=== PATIENT | male | born 1985 | race American Indian/Alaskan Native ===

== ENCOUNTER 2022-06-14 16:36 | Emergency (ER) | payer SELFPAY ==
[2022-06-14 16:43] VITALS: BP 137/90
--- NOTE | 2022-06-14 17:22 | XRay Report ---
LEFT SHOULDER 3 VIEW(S) INDICATION / CLINICAL INFORMATION: INJURY. COMPARISON: None available. FINDINGS: BONES / JOINT(S): No acute fracture or subluxation. No significant arthritis. SOFT TISSUES: No significant abnormality. ADDITIONAL FINDINGS: None. IMPRESSION: 1. No acute findings. Signer Name: Hossein Irvin MD Signed: 06/14/2022 5:17 PM Workstation Name: [employer]
[2022-06-14] MEDS ORDERED: KETOROLAC 30 MG/1 ML INJ IM ONE (18:32)
--- NOTE | 2022-06-14 18:37 | Emergency Department Report ---
Upper Extremity - [facility] Chief Complaint: Extremity Injury, Upper Stated Complaint: SHOULDER PAIN / HAVENT SLEPT IN 3 DAYS Upper Extremity: Left Shoulder Occurred When: 3 Days Severity: severe Symptoms: Yes Pain with Movement, Yes Limited Range of Movement, Yes Numbness, No Deformity, No Swelling Other History: Patient reports to ER for left shoulder pain time 3 days. Has only been taking Tylenol which has not helped. Not able to lift arm or extend. Does work a laborous job. NKDA. Denies any known injury. ED Review of Systems ROS: Stated complaint: SHOULDER PAIN / HAVENT SLEPT IN 3 DAYS Other details as noted in HPI ED Past Medical Hx - Past Medical History Previous Medical History?: Yes - Surgical History Past Surgical History?: No - Social History Smoking Status: Never Smoker Substance Use Type: None - Medications Home Medications: Home Medications Medication Instructions Recorded Confirmed Last Taken Type Ibuprofen [Motrin 800 MG tab] 800 mg PO Q8HR PRN #30 tablet 06/14/22 Unknown Rx Upper Extremity Exam - Exam General: Vital signs noted. No distress. Alert and acting appropriately. Head and Torso: No HEENT Abnormality, No Neck Tenderness, No Chest/Lungs Abnormality, No Abdominal Tenderness, No Back Tenderness Shoulder Exam: Yes Shoulder Tenderness, Yes AC Joint Tenderness, No Clavicle Tenderness, No Normal Range of Motion in Shoulder, No Shoulder Deformity Arm Exam: No Arm/Humerus Tenderness, No Arm Deformity Elbow: No Elbow Tenderness, No Normal Range of Motion in Elbow, No Elbow Deformity Forearm: No Forearm Tenderness, No Forearm Deformity, No Pain with Pronation, No Pain with Supination Wrist: Yes Normal ROM in Wrist, No Wrist Tenderness, No Wrist Deformity, No Snuffbox Tenderness, No Pain with Axial Thumb Compression Hand: Yes Normal ROM in Digit(s), No Hand Tenderness, No Hand Deformity, No Digit Tenderness, No Digit(s) Deformity, No Tendon Dysfunction ED Course Vital Signs 06/14/22 06/14/22 16:37 16:39 Temperature 99.3 F Pulse Rate 96 H Respiratory 18 Rate Blood Pressure 137/90 O2 Sat by Pulse 100 Oximetry ED Medical Decision Making - Medical Decision Making Patient reports to ER for left shoulder pain time 3 days. Has only been taking Tylenol which has not helped. Not able to lift arm or extend. Does work a laborous job. NKDA. Denies any known injury. Xray of shoulder shows no acute abnormality. Patient will be given a Toradol 30 mg IM. Discharge on Ibuprofen 800mg and referral to Orthopedis. Critical care attestation.: If time is entered above; I have spent that time in minutes in the direct care of this critically ill patient, excluding procedure time. ED Disposition Clinical Impression: Left anterior shoulder pain Disposition: HOME / SELF CARE / HOMELESS Is pt being admited?: No Does the pt Need Aspirin: No Condition: Stable Instructions: Shoulder Pain, [id number] Additional Instructions: Take pain medication follow up with an orthopedics. Prescriptions: Ibuprofen [Motrin 800 MG tab] 800 mg PO Q8HR PRN #30 tablet PRN Reason: Pain , Severe (7-10) Referrals: NELIDA WINTER MD [Staff Physician] - 3-5 Days [facility] [Provider Group] - 3-5 Days Forms: Work/School Release Form(ED) Time of Disposition: 18:40
== END 2022-06-14 19:04 | disposition home or self-care (01) ==
LOC: ED 16:36
DX: M25.512 Pain in left shoulder (principal)
CPT/HCPCS: 73030; 96372; 99283; J1885